=== PATIENT | female | born 1990 | race Two or more races ===

== ENCOUNTER 2019-12-05 09:22 | Outpatient (RCR) | payer OTHER, SELFPAY ==
[2019-11-20 10:20] VITALS: BP 114/70; PULSE 97
[2019-11-23 10:14] VITALS: BP 135/80; PULSE 97
[2019-11-26 10:07] VITALS: BP 120/72; PULSE 97
[2019-11-29 12:58] VITALS: BP 121/68; PULSE 104
[2019-12-02 10:27] VITALS: BP 115/71; PULSE 88
[2019-12-05 10:00] VITALS: BP 122/70; PULSE 84
== END 2020-01-27 08:53 | disposition home or self-care (01) ==
LOC: ANHOBOP 09:22
PROVIDERS: PCP Obstetrics & Gynecology; Visit Provider Obstetrics & Gynecology
DX: O24.419 Gestational diabetes mellitus in pregnancy, unspecified control (principal); Z3A.36 36 weeks gestation of pregnancy; Z3A.37 37 weeks gestation of pregnancy; Z3A.38 38 weeks gestation of pregnancy
CPT/HCPCS: 59025

== ENCOUNTER 2019-12-12 09:18 | Outpatient (CLI) | payer OTHER, SELFPAY ==
[2019-12-12 09:41] LABS: Basophils Percent Auto 0.2 % (0.2-1.2); Eosinophils Percent Auto 0.5 % (0-4.4); Hematocrit 33.4 % (37.0-47.0); Hemoglobin 10.6 g/dL (12.0-15.0); Immature Granulocyte Absolute 0.02 K/mm3 (0.00-0.031); Immature Granulocyte Percent A 0.2 % (0-0.5); Lymphocytes Absolute Auto 2.46 K/mm3 (0.9-3.2); Lymphocytes Percent Auto 30.6 % (18.3-44.2); Mean Corpuscular HGB Conc 31.7 g/dl (32-36); Mean Corpuscular Hemoglobin 25.1 pg (26-34); Mean Corpuscular Volume 79.1 fl (80-100); Mean Platelet Volume 12.7 fl (7.4-10.4); Monocytes Absolute Auto 0.5 K/mm3 (0.1-0.6); Monocytes Percent Auto 6.7 % (2.6-8.5); Neutrophils Percent Auto 61.8 % (45.5-73.1); Platelet Count Result 183 k/mm3 (150-375); Red Blood Count 4.22 M/mm3 (4.2-5.4); Red Cell Distribution Width 14.6 % (11.5-14.5)
[2019-12-13 07:05] LABS: Rapid Plasma Reagin Non-Reactive (NonReactive)
== END 2019-12-12 09:19 | disposition home or self-care (01) ==
PROVIDERS: PCP Obstetrics & Gynecology; Visit Provider Obstetrics & Gynecology
DX: Z01.818 Encounter for other preprocedural examination (principal)
CPT/HCPCS: 36415; 85025; 86592; 86850; 86900; 86901

== ENCOUNTER 2019-12-13 07:03 | Inpatient (IN) | payer OTHER, SELFPAY ==
[2019-12-13] VITALS (63 sets, daily range): BP systolic 93–124; BP diastolic 49–94; PULSE 55–96; RESP 14–20; TEMP 35.9–37.2; O2SAT 96–100; BMI 39.1
--- NOTE | 2019-12-13 07:38 | P.HP_ITS ---
H&P: HPI History of Present Illness Chief complaint: Repeat C Section Narrative: Jory Matthews is a 29 yo @ 39.5wks who presents for scheduled repeat c/s. She denies any issues. No contractions, leakage of fluid, vaginal bleeding. Good movements. BS 74 this AM. This is complicated by: previous h/o section and gestational diabetes (A2GDM) on glyburide. Review of Systems Constitutional: Constitutional: Denies body ache(s) and Denies chills Cardiovascular: Cardiovascular: Denies chest pain Respiratory: Respiratory: Denies dyspnea on exertion Gastrointestinal: Gastrointestinal: Denies abdominal pain Genitourinary: Genitourinary: Denies vaginal discharge Neurologic: Denies headache(s) Psychiatric: Psychiatric: Denies no additional psychiatric complaints Meds Vital Signs Vital Signs - 24 hr 12/13/19 07:29 Pulse Rate 93 Blood Pressure 124/76 Exam Const: General: comfortable and no acute distress Resp: Effort & Inspection: normal respiratory effort Auscultation: clear to auscultation bilaterally Cardio: Rate: regular rate Rhythm: regular rhythm GI: Other: Gravid : Other: FHT: 120's/ mod mao/ + accels/ no decels - cat 1 [place]: no contractions Membranes: intact Skin: General skin exam: no rashes or lesions noted Neuro: Speech: normal speech Psych: Mental Status: mental status grossly normal Assessment and Plan Additional Plan 29yo @ 39.5wks for scheduled repeat c/s - Pt has previous c/s in 2016 - Risks/benefits explained in detail. All questions answered. Consents signed. - T&S, CBC - Cefazolin 2g IV prior to c/s - Proceed with scheduled c/s
[2019-12-13 07:46] LABS: Glucose Point of Care 74 (65-105)
--- NOTE | 2019-12-13 08:05 | LDADM ---
This patient, Jory Matthews, was admitted to Labor/Delivery/Recovery 120 on 12/13/19 at 07:03. Plans for labor, pain management and were discussed with patient. Patient/family oriented to hospital policies and general routines including ID bracelet, bed and alarms, visiting hours, pain management, procedures, bathroom and other care routines, personal items, smoking policy, room service/diet and guest tray routines, security routines, and visiting hours. Patient/Family are encouraged to report perceived risks to care and to ask questions if they do not understand what they are told or what they should do. See OBIX for further documentation.
[2019-12-13] MEDS: LACTATED RINGERS 1,000 ML 999 ML IV CONT (08:22)
--- NOTE | 2019-12-13 08:28 | WPDANESEPPF ---
Anes - Initial Pre Proc Eval Procedure: Operation Date: 12/13/19 09:00 Proposed Procedures p Repeat Section - Erica Petersen MD Date/Time: 12/13/19 08:28 Surgeon: Erica Petersen MD Pre Op Diagnosis: Repeat C Section Patient Data Age: 29 Gender: F Height: 5 ft 6 in Weight: 110 kg Last Vital Signs Temp 36.3 C L 12/13/19 08:18 Pulse 93 12/13/19 07:29 BP 124/76 12/13/19 07:29 Allergies Allergy/AdvReac Type Severity Reaction Status Date / Time No Known Allergies Allergy Verified 12/13/19 08:19 Home Medications Medication Instructions Recorded Confirmed Type doxylamine-pyridoxine (vit B6) 1 tablet PO EVERY OTHER DAY 12/13/19 12/13/19 History [Diclegis] glyburide 1 mg DAILY 12/13/19 12/13/19 History Laboratory Tests 12/13/19 12/13/19 07:42 07:46 POC Capillary Glucose 74 mg/dl mg/dl (65-105) HIV 1&2 Ab/P24 Ag 4thGn Pending Patient hx anesthesia problems: none Family hx anesthesia problems: none PMFSH Past Medical History Medical History (Updated 12/13/19 @ 08:29 by Nicola Patton MD) Gestational diabetes mellitus Obesity Surgical History Surgical History (Updated 12/13/19 @ 08:29 by Nicola Patton MD) Previous delivery, delivered Family History Family History Father Diabetes mellitus Social History Social History Smoking status: Former smoker Tobacco type: cigarettes Gender identity (if verbalized by the patient): Female Anes - Eval Final PreProcedure Day of Procedure 12/13/19 08:28 Patient weight: obese Heart: regular rate and rhythm Lungs: clear to auscultation Airway: Mallampati scale class II Neurological: alert and oriented Last oral intake: >/= 8 hours ASA classification: II Emergent: no Anesthetic plan: proceed Anesthesia type and monitoring: regional spinal and standard monitoring Informed Consent: The patient's anesthetic plan and its attendant risks and benefits were discussed with the patient/family/POA. Questions were solicited and answers provided to the satisfaction of the patient/family/POA.
[2019-12-13 08:46] LABS: HIV 1/2 Ab P24 Ag Result Negative (Negative)
--- NOTE | 2019-12-13 10:41 | PM.OBPRVD ---
OB - Delivery Note Procedure Delivery date: 12/13/19 Procedure: Procedures Operation Date: 12/13/19 09:00 Actual Procedures Side Surgeon p Section Erica Petersen MD Jory Matthews is a 29-year-old 011 at 39 weeks and 5 days who presented for scheduled repeat section. After all risks and benefits were explained in detail the appropriate consents were signed. She was then taken to the operating room where epidural anesthesia was placed without difficulty. She received 2 g Ancef and a time-out was performed. Once anesthesia was found to be adequate she was then prepped and draped in the usual sterile fashion in the dorsal position. A Pfannenstiel skin incision was made. The incision was then carried down through the subcutaneous tissue to the fascia using Bovie cautery. The fascia was nicked on either side of the midline and extended laterally using curved Bruno scissors. The superior portion of the rectus fascia was grasped with Babita clamps and the underlying rectus muscles were dissected away from the rectus fascia. The same maneuver was performed inferiorly. The rectus muscles were then in the midline and the peritoneum was entered bluntly without complications. Once adequate exposure was obtained, a self retaining retractor was placed within the abdomen. A bladder flap was then made. A low transverse incision was made on the uterus. The amniotic sac was identified and ruptured with clear fluid noted. The head was then brought to the hysterotomy and delivered without complications, no nuchal cord was palpated. The shoulders and body were delivered without complications. The mouth and nose were bulb suctioned and spontaneous cry was noted. The umbilical cord was clamped and cut and the fetus was handed off to the waiting pediatric nurse. A segment of cord was collected for cord gases. The remaining cord blood was collected for typing. With gentle traction on the umbilical cord and pitocin running, the placenta delivered without complications. The uterus was then cleared of all clots and debris using a clean lap. The hysterotomy was repaired in a running fashion using 0 Vicryl. A 2nd layer imbricating closure was made using 0 Vicryl, and the hysterotomy was noted to be hemostatic. The bilateral adnexa were examined and found to be within normal limits and the fundus was firm. The pelvis was then cleared of all clots and debris using a clean lap. The hysterotomy incision was once again reinspected and found to be hemostatic. The self retaining retractor was removed from the abdomen. The peritoneum, rectus muscles, and rectus fascia were all examined and made hemostatic with Bovie cautery. A single U stitch using 0 Vicryl was used to reapproximate the rectus muscles. The rectus fascia was then reapproximated using 2 separate 0 Vicryl sutures in a running fashion from each corner. The subcutaneous tissue was then irrigated and made hemostatic with Bovie cautery. The subcutaneous tissue was reapproximated using 2 0 Vicryl in a running fashion. The skin was then reapproximated using 3 0 Monocryl in a running subcuticular fashion. The fundus was firm. The patient tolerated the procedure well. Sponge, lap, needle, and instrument counts were correct at the end of the procedure. The patient was cleaned and then transported to recovery in a stable condition. events: Gestational Diabetes (A2GDM on glyburide) Induction method: none Route of delivery: Laceration description: None Delivery repair: vicryl Specimen: Yes Estimated blood loss (mL): 215 Anesthesia type: Epidural Disposition: PACU Baby Date of : 12/13/19 Time of : 09:08 Weeks of gestation at delivery: 39 gender: Female Weight (pounds): 8 Weight (ounces): 2 presentation: vertex Placenta delivery description: Expressed cord vessel description: 3 Vessels score one min
[2019-12-13] MEDS: OXYTOCIN 30 UNITS/NS 500 ML 30 UNITS/500 ML BAG 125 UNITS IV CONT (11:00)
[2019-12-13] MEDS: LORATADINE 10 MG TABLET PO (14:01)
[2019-12-13] MEDS: ONDANSETRON INJ 4 MG/2 ML VIAL 8 MG IV PUSH (14:02)
[2019-12-13] MEDS: KETOROLAC 30 MG/ML VIAL (*BKC) IV PUSH ×2 (14:09→22:24)
[2019-12-13] MEDS: DEXTROSE 5%/0.45% SOD CHL 1,000 ML 125 ML IV CONT (15:10)
[2019-12-13] MEDS: DOCUSATE SODIUM 100 MG CAPSULE PO (16:54)
--- NOTE | 2019-12-13 19:36 | PC.NURSE ---
1233 Pt transferred to room 284 per stretcher from labor and delivery after repeat delivery of viable female at [address] Peters[address]. Mother is a and is choosing to breast feed . /FOB present. Couple oriented to room, staffing and procedures; admission folder reviewed with them. Pt's VSS and assessment WNL.
[2019-12-14 04:45] VITALS: BP 104/62; PULSE 89; RESP 16; TEMP 36.6; O2SAT 100
[2019-12-14] MEDS: IBUPROFEN 600 MG TABLET PO ×3 (04:45→19:51)
[2019-12-14] MEDS: SIMETHICONE 80 MG TAB.CHEW PO (04:45)
[2019-12-14 06:26] LABS: Basophils Percent Auto 0.1 % (0.2-1.2); Eosinophils Percent Auto 0.4 % (0-4.4); Hematocrit 27.8 % (37.0-47.0); Hemoglobin 8.5 g/dL (12.0-15.0); Immature Granulocyte Absolute 0.02 K/mm3 (0.00-0.031); Immature Granulocyte Percent A 0.2 % (0-0.5); Lymphocytes Absolute Auto 1.28 K/mm3 (0.9-3.2); Lymphocytes Percent Auto 15.3 % (18.3-44.2); Mean Corpuscular HGB Conc 30.6 g/dl (32-36); Mean Corpuscular Hemoglobin 24.6 pg (26-34); Mean Corpuscular Volume 80.6 fl (80-100); Mean Platelet Volume 12.6 fl (7.4-10.4); Monocytes Absolute Auto 0.7 K/mm3 (0.1-0.6); Monocytes Percent Auto 8.8 % (2.6-8.5); Neutrophils Absolute Auto 6.3 K/mm3 (1.3-6.7); Neutrophils Percent Auto 75.2 % (45.5-73.1); Platelet Count Result 152 k/mm3 (150-375); Red Blood Count 3.45 M/mm3 (4.2-5.4); Red Cell Distribution Width 14.6 % (11.5-14.5); White Blood Count 8.4 K/mm3 (4.5-10.0)
[2019-12-14 07:30] VITALS: BP 110/73; PULSE 88; RESP 18; TEMP 36.6
[2019-12-14] MEDS: MULTIVIT/MIN/PREN/FOL AC/IRON TABLET 1 TAB PO (07:38)
[2019-12-14] MEDS: POLYSACCHARIDE IRON COMPLEX 150 MG CAPSULE PO ×2 (07:38→17:45)
[2019-12-14] MEDS: DOCUSATE SODIUM 100 MG CAPSULE PO ×2 (07:38→17:45)
--- NOTE | 2019-12-14 09:22 | PM.OBPNVD ---
OB - PN: Subj Subjective Date/time seen: 12/14/19 09:22 Patient comments: no complaints, pain well controlled, incisional pain and tolerating diet [place] baby status: doing well [place] feeding status: exclusively breast feeding OB - PN: Obj Data Labs CBC & Chem 7: 12/14/19 05:01 Labs: Laboratory Results - last 24 hr 12/14/19 05:01 WBC 8.4 RBC 3.45 L Hgb 8.5 L Hct 27.8 L MCV 80.6 MCH 24.6 L MCHC 30.6 L RDW 14.6 H Plt Count 152 MPV 12.6 H Immature Gran % (Auto) 0.2 Neut % (Auto) 75.2 H Lymph % (Auto) 15.3 L [place] % (Auto) 8.8 H Eos % (Auto) 0.4 Baso % (Auto) 0.1 L Lymph # (Auto) 1.28 [place] # (Auto) 0.7 H Eos # (Auto) 0.0 Baso # (Auto) 0.0 Abs Immat Gran (auto) 0.02 Absolute Neuts (auto) 6.3 Absolute Nucleated RBC 0.0 Nucleated RBC % 0.0 OB - PN A/P Assessment and Plan (1) delivery delivered: Code(s): O82 - Encounter for delivery without indication Status: Acute Assessment and Plan: Routine postop/ care Pain management Ambulate (2) Postoperative anemia due to acute blood loss: Code(s): D62 - Acute posthemorrhagic anemia Status: Acute Assessment and Plan: Iron supplements Time Spent With Patient Time: Total time spent is greater than 50% in coordination of care (as documented) at patient's floor/unit and/or counseling patient: Review of Systems Constitutional: Constitutional: Reports no additional constitutional complaints Cardiovascular: Cardiovascular: Reports no additional cardiovascular complaints Respiratory: Respiratory: Reports no additional respiratory complaints Gastrointestinal: Gastrointestinal: Reports no additional gastrointestinal complaints Genitourinary: Genitourinary: Reports no additional female genitourinary complaints Exam Const: General: comfortable, no acute distress, alert and awake Orientation/consciousness: patient oriented x3 Resp: Effort & Inspection: normal respiratory effort Cardio: Rate: regular rate GI: Other: soft, nontender, nondistended Psych: Appearance: grossly normal Mental Status: mental status grossly normal Affect: normal affect Attitude: cooperative Judgement: Good judgement present (Psych)
--- NOTE | 2019-12-14 10:34 | WPDANLDPN2 ---
Anes-Prog Note L&D Date/Time: 12/14/19 10:34 Comfortable throughout: section Neuraxial method: spinal Epidural/Spinal procedure site: clean & non-tender Neuro status: Neuro function grossly intact. Cardiovascular status: normal Respiratory status: normal Airway patency: baseline Mental status: baseline Post-Op hydration status: normal Vital Signs: Last Vital Signs Temp 36.6 C 12/14/19 07:30 Pulse 88 12/14/19 07:30 Resp 18 12/14/19 07:30 BP 110/73 12/14/19 07:30 Pulse Ox 100 12/14/19 04:45 I/O: Intake & Output 12/13/19 12/14/19 12/14/19 23:59 07:59 15:59 Intake Total 3160 500 Output Total 900 1050 Balance 2260 -550 Post-procedural complaints: none Patient feedback: Patient satisfied with anesthetic care.
--- NOTE | 2019-12-14 10:34 | WPDANLDNPN2 ---
Anes-Prog Note L&D-Neuraxial Date/Time: 12/14/19 10:34 Neuraxial medications: intrathecal PF morphine Opiod-related complaints: none Patient feedback: Patient satisfied with post-operative pain management.
[2019-12-14 19:50] VITALS: BP 122/65; PULSE 91; RESP 16; TEMP 36.8; O2SAT 100
[2019-12-15] MEDS: IBUPROFEN 600 MG TABLET PO ×4 (02:08→23:42)
[2019-12-15 07:50] VITALS: BP 133/71; PULSE 97; RESP 18; TEMP 36.4
[2019-12-15] MEDS: POLYSACCHARIDE IRON COMPLEX 150 MG CAPSULE PO ×2 (07:51→16:24)
[2019-12-15] MEDS: DOCUSATE SODIUM 100 MG CAPSULE PO ×2 (07:51→16:23)
[2019-12-15] MEDS: MULTIVIT/MIN/PREN/FOL AC/IRON TABLET 1 TAB PO (07:51)
--- NOTE | 2019-12-15 09:52 | PM.OBPNVD ---
OB - PN: Subj Subjective Date/time seen: 12/15/19 09:52 Interval history: 29yos/p rLTCS on 12/12. Doing well. Soreness and pain with movement and ambulation. Otherwise doing well. Passing flatus. Tolerating diet. Patient comments: no complaints, incisional pain and tolerating diet [place] baby status: doing well feeding status: exclusively breast feeding OB - PN: Obj Data Labs CBC & Chem 7: 12/14/19 05:01 OB - PN A/P Assessment and Plan (1) delivery delivered: Code(s): O82 - Encounter for delivery without indication Status: Acute Assessment and Plan: Routine postop/ care Pain management Ambulate DC home tomorrow, POD#3 (2) Postoperative anemia due to acute blood loss: Code(s): D62 - Acute posthemorrhagic anemia Status: Acute Assessment and Plan: Iron supplements Time Spent With Patient Time: Total time spent is greater than 50% in coordination of care (as documented) at patient's floor/unit and/or counseling patient: Review of Systems Constitutional: Constitutional: Reports no additional constitutional complaints, Denies body ache(s), Denies chills and Denies headache(s) ENT: Denies headache(s) Cardiovascular: Cardiovascular: Reports no additional cardiovascular complaints, Denies chest pain and Denies dyspnea on exertion Respiratory: Respiratory: Reports no additional respiratory complaints and Denies dyspnea on exertion Gastrointestinal: Gastrointestinal: Reports no additional gastrointestinal complaints and Denies abdominal pain Genitourinary: Genitourinary: Reports no additional female genitourinary complaints and Denies vaginal discharge Neurologic: Denies headache(s) Psychiatric: Psychiatric: Denies no additional psychiatric complaints Exam Const: General: comfortable, no acute distress, alert and awake Orientation/consciousness: patient oriented x3 Resp: Effort & Inspection: normal respiratory effort Auscultation: clear to auscultation bilaterally Cardio: Rate: regular rate Rhythm: regular rhythm GI: Other: soft, nontender, nondistended Skin: General skin exam: no rashes or lesions noted Neuro: General: patient oriented x3 Speech: normal speech Psych: Mental Status: mental status grossly normal Affect: normal affect Attitude: cooperative Judgement: Good judgement present (Psych)
--- NOTE | 2019-12-15 09:54 | P.DS_ITS ---
DS: Diagnosis Admitting Diagnosis Admitting Diagnosis: Encounter for delivery without indication Discharge Diagnosis (1) Postoperative anemia due to acute blood loss: Code(s): D62 - Acute posthemorrhagic anemia Status: Acute Assessment and Plan: Iron supplements (2) S/P repeat low transverse : Code(s): Z98.891 - History of uterine scar from previous surgery Status: Acute Assessment and Plan: Routine postop/ care Pain management Ambulate DC home 12/16/2019 DS: Summary Time Spent with Patient Time attestation: Total time spent providing and/or coordinating discharge services: Exam Const: General: comfortable, no acute distress, alert and awake Orientation/consciousness: patient oriented x3 Resp: Effort & Inspection: normal respiratory effort Auscultation: clear to auscultation bilaterally Cardio: Rate: regular rate Rhythm: regular rhythm GI: Other: soft, nontender, nondistended Skin: General skin exam: no rashes or lesions noted Neuro: General: patient oriented x3 Speech: normal speech Psych: Appearance: grossly normal Mental Status: mental status grossly no rmal Affect: normal affect Attitude: cooperative Judgement: Good judgement present (Psych) DS: Data Data Completed and Pending Pending studies at discharge: Pending at discharge 12/13/19 10:11 Surgical [PTH] Routine Discharge Plan Discharge Attending physician on discharge: Erica Petersen Discharging Clinician: Jose Avery Patient Disposition: Home, Self-Care Activity: as tolerated Diet: regular Wound Care Instructions: keep dressing dry and other - see discharge instructions Discharge Instructions: Follow up in office in 1 week after surgery for dressing removal Patient Instructions: Antibiotic Form Stand Alone Forms: General Discharge Information Follow-up/Referrals: Erica Petersen MD [Physician] - Discharge Medications: New hydrocodone-acetaminophen 5-325 mg Tablet 1 tab PO Q6H PRN (Reason: Moderate Pain (4-6)) Qty: 20 RF: 0 polysaccharide iron complex 150 mg iron Capsule 150 mg PO BIDWM Qty: 90 RF: 0 docusate sodium 100 mg Capsule 100 mg PO BID Qty: 60 RF: 0 ibuprofen 600 mg Tablet 600 mg PO Q6H PRN (Reason: Cramping) Qty: 90 RF: 0 Continued glyburide 2.5 mg tablet 1 mg DAILY RF: 0 Discontinued doxylamine-pyridoxine (vit B6) [Diclegis] 10-10 mg tablet,delayed release (DR/EC) 1 tablet PO EVERY OTHER DAY RF: 0 Date of admission: 12/13/19 07:03 Primary Care Provider: UNKNOWN,DOCTOR Admitting Provider: Erica Petersen Attending physician on admission: Erica Petersen
[2019-12-15 19:42] VITALS: BP 123/77; PULSE 90; RESP 16; TEMP 36.1; O2SAT 100
[2019-12-16 07:40] VITALS: BP 125/78; PULSE 85; RESP 18; TEMP 36.7; O2SAT 100
--- NOTE | 2019-12-16 09:00 | PC.NURSE ---
Consult with pt., mother states she had some difficulties with latching. Mother began to pump and is now pumping and bottle feeding. Offered mother assist with latching, mother declines assist. Mother states she is happy with pumping and bottle feeding, she may attempt later. Mother pumps every 3 hours and is now pumping 30+mls each pumping session. Mother breastfed first child for several months without issues. Mother is feeding as required and waking to feed if needed. Infant is currently meeting outcomes for output, jaundice and feeding frequencies. Weight is close to 10%, mother will give at least 30mls each feeding. Mother states she feels confident to continue current feeding plan at home. Reviewed transition to breast milk, signs of adequate intake, and engorgement/relief. Instructed to call ICP if intake/output less than required. Reviewed regular medications mother is taking. Information provided per Elizabeth. Reviewed community resources on the [employer] website and in the Mom/Baby guide. Information on outpatient services provided. Mother has no further questions at this time.
[2019-12-16] MEDS: POLYSACCHARIDE IRON COMPLEX 150 MG CAPSULE PO (10:10)
[2019-12-16] MEDS: DOCUSATE SODIUM 100 MG CAPSULE PO (10:10)
[2019-12-16] MEDS: IBUPROFEN 600 MG TABLET PO (10:13)
[2019-12-16] MEDS: MULTIVIT/MIN/PREN/FOL AC/IRON TABLET 1 TAB PO (10:13)
--- NOTE | 2019-12-16 11:24 | PC.NURSE ---
Patient viewed the discharge video Mother & Baby Care, The First Two Weeks . Patient was given the opportunity and encouraged to ask questions. Patient verbalized understanding of information shared and has been given the mother/baby guide for home reference.
[2019-12-17 13:18] VITALS: BP 136/89; PULSE 96; RESP 20; TEMP 36.8
== END 2019-12-16 13:14 | disposition home or self-care (01) | DRG 787 ==
LOC: ANHOB2 12-15 09:58 → ANHLDR 12-18 07:20 → ANHOB2 12-18 07:20
PROVIDERS: Admitting Provider Obstetrics & Gynecology; Visit Provider Obstetrics & Gynecology
PROC: 10D00Z1 Extraction of Products of Conception, Low, Open Approach (ICD-10-PCS; CPT 59514; principal; 2019-12-13 09:00)
DX: O34.211 Maternal care for low transverse scar from previous cesarean delivery (principal); D62 Acute posthemorrhagic anemia; Z3A.39 39 weeks gestation of pregnancy; Z37.0 Single live birth; O24.425 Gestational diabetes mellitus in childbirth, controlled by oral hypoglycemic drugs
CPT/HCPCS: 36415; 85025; 86592; 86703; 86850; 86900; 86901; 88307; A9270; G0432; J0131; J1885; J2274; J2370; J2405; J2590; J7120

== ENCOUNTER 2020-04-11 11:17 | Outpatient (CLI) | payer OTHER, SELFPAY | END 2020-04-11 11:18 | disposition home or self-care (01) | PROVIDERS: Visit Provider Obstetrics & Gynecology | DX: N92.6 Irregular menstruation, unspecified (principal) | CPT/HCPCS: 36415; 84702 ==

== ENCOUNTER 2020-04-13 11:21 | Emergency (ER) | payer OTHER, SELFPAY ==
--- NOTE | ~2020-04-13 | US_ITS ---
EXAMINATION: US OB <=14 wk fetus w TV DATE: 04/13/2020 15:13 INDICATION: Vaginal bleeding during first trimester TECHNIQUE: Real-time pelvic transabdominal and transvaginal ultrasound was performed. COMPARISON: None. FINDINGS: The uterus measures 10.0 x 4.2 x 6.4 cm. The endometrial thickness measures 13 mm. No intr auterine gestational sac is identified. The left ovary is not visualized however no left adnexal abno rmality is seen. The right ovary measures 3.3 x 1.9 x 2.9 cm. There is a large amount of complex free fluid in the pelvis and right adnexa. IMPRESSION: 1. No intrauterine identified. Findings could be related to early gestation. However, there is a large volume of complex pelvic fluid, possibly reflecting hemorrhage, raising concern for ruptu red ectopic . MEDICAL TECHNOLOGIST CHEMISTRY evaluation is recommended. These findings and recommendations were disc ussed with Dr. Teodoro MD in the Emergency Department at 1530 hours on 04/13/2020. Reviewed, dictated and finalized at location A. IMPRESSION: 1. No intrauterine identified. Findings could be related to early ges tation. However, there is a large volume of complex pelvic fluid, possibly refl ecting hemorrhage, raising concern for ruptured ectopic . MEDICAL TECHNOLOGIST CHEMISTRY evalu ation is recommended. These findings and recommendations were discussed with Dr Ale Valerio MD in the Emergency Department at 1530 hours on 04/13/2020.
[2020-04-13 11:45] VITALS: BP 118/95; PULSE 95; RESP 20; TEMP 36; O2SAT 99
[2020-04-13 12:00] LABS: Basophils Percent Auto 0.3 % (0.2-1.2); Eosinophils Percent Auto 0.4 % (0-4.4); Hematocrit 37.7 % (37.0-47.0); Immature Granulocyte Absolute 0.02 K/mm3 (0.00-0.031); Immature Granulocyte Percent A 0.3 % (0-0.5); Lymphocytes Absolute Auto 1.78 K/mm3 (0.9-3.2); Lymphocytes Percent Auto 24.3 % (18.3-44.2); Mean Corpuscular HGB Conc 31.8 g/dl (32-36); Mean Corpuscular Volume 81.6 fl (80-100); Mean Platelet Volume 11.5 fl (7.4-10.4); Monocytes Absolute Auto 0.4 K/mm3 (0.1-0.6); Monocytes Percent Auto 4.9 % (2.6-8.5); Neutrophils Absolute Auto 5.1 K/mm3 (1.3-6.7); Neutrophils Percent Auto 69.8 % (45.5-73.1); Platelet Count Result 275 k/mm3 (150-375); Red Blood Count 4.62 M/mm3 (4.2-5.4); Red Cell Distribution Width 15.6 % (11.5-14.5); White Blood Count 7.3 K/mm3 (4.5-10.0)
--- NOTE | 2020-04-13 14:37 | PC.NURSE ---
Pt gone when called to go to exam room.
[2020-04-13 16:47] VITALS: BP 115/52; PULSE 102; RESP 20; O2SAT 100
--- NOTE | 2020-04-13 16:58 | ED.GENADULT ---
HPI - General Adult General Chief complaint: Vaginal Bleeding Stated complaint: vag bleeding a couple weeks Time Seen by Provider: 04/13/20 16:43 History of Present Illness HPI narrative: Patient is a 29 y/o female complaining of heavy vaginal bleeding for about 5 days. She denies passing tissue or clots. She notices dark blood. There is no alleviating or exacerbating factor. She states that her LMP was 03/17/20. She took home test 3 days ago and it was positive. She also has some lower abdominal cramping. She was instructed by her garnett fixer to come to ED for evaluation. Related Data Home Medications Medication Instructions Recorded Confirmed glyburide 1 mg DAILY 12/13/19 12/13/19 Allergies Allergy/AdvReac Type Severity Reaction Status Date / Time No Known Allergies Allergy Verified 12/13/19 08:19 Review of Systems Constitutional: Constitutional: Denies chills, Denies fever(s), Denies headache(s) and Denies weakness Eyes: Eyes: Denies blurry vision ENT: Denies headache(s) and Denies neck pain Cardiovascular: Cardiovascular: Denies chest pain and Denies dyspnea Respiratory: Respiratory: Denies cough and Denies dyspnea Gastrointestinal: Gastrointestinal: Denies abdominal pain, Denies diarrhea, Denies nausea and Denies vomiting Genitourinary: Genitourinary: Reports abnormal vaginal bleeding, Denies hematuria, Denies dysuria and Reports pelvic pain Musculoskeletal: Musculoskeletal: Denies back pain and Denies neck pain Neurologic: Denies headache(s) and Denies weakness [facility] Past Medical History Medical History (Updated 04/13/20 @ 18:50 by Barbi Valerio MD) Gestational diabetes mellitus Obesity Surgical History Surgical History (Updated 12/15/19 @ 09:55 by Jose Avery DO) Previous delivery, delivered Social History Social History Smoking status: Former smoker Tobacco type: cigarettes Gender identity (if verbalized by the patient): Female Exam Const: General: no acute distress and well developed Orientation/consciousness: oriented to person, oriented to place, oriented to time and patient oriented x3 HENMT: Head: normocephalic Ears: external ears normal General nose exam: Normal external nose present Eyes: General: appearance normal, both eyes and all related structures Conjunctivae: conjunctivae normal Neck: Neck: normal visual inspection and full ROM Chest: Chest palpation & inspection: normal inspection of the chest and no tenderness Resp: Effort & Inspection: normal respiratory effort Auscultation: clear to auscultation bilaterally Cardio: Rate: regular rate Rhythm: regular rhythm GI: GI Palp: No abdominal tenderness and Yes Soft to palpation Skin: General skin exam: normal color and turgor normal Neuro: General: oriented to person, oriented to place, oriented to time and patient oriented x3 Cognition (Neuro): normal cognition Extrem: General: normal to inspection, full ROM and no pedal edema Psych: Appearance: grossly normal Mental Status: mental status grossly normal Affect: normal affect Course Reevaluation(s) Reevaluation #1: Informed patient about labs and ultrasound. Informed patient that miscarriage, early and ectopic are all possibilities and she needs follow up with her garnett fixer for further evaluation. Date: 04/13/20 Time: 18:30 Consultations Consultation #1: Discussed with Dr. Richards ([employer]), who recommends discharge and have patient call his office tomorrow for follow up. He will arrange for outpatient repeat labs and ultrasound. Date: 04/13/20 Time: 17:48 Vital Signs Vital signs: Vital Signs Temperature 36.0 C L 04/13/20 11:45 Pulse Rate 95 04/13/20 11:45 Respiratory Rate 20 04/13/20 11:45 Blood Pressure 118/95 H 04/13/20 11:45 Pulse Oximetry 99 04/13/20 11:45 Temperature 36.0 C L 04/13/20 11:45 Pulse Rate 90 04/13/20 18:56
[2020-04-13 18:34] LABS: Hematocrit 35.6 % (37.0-47.0); Hemoglobin 11.4 g/dL (12.0-15.0)
[2020-04-13 18:40] VITALS: BP 116/77; PULSE 94
[2020-04-13 18:42] VITALS: BP 113/78; BP 128/80; PULSE 104; PULSE 116
[2020-04-13 18:56] VITALS: BP 129/75; PULSE 90; RESP 20; O2SAT 98
== END 2020-04-13 18:58 | disposition home or self-care (01) ==
PROVIDERS: General Practice; Emergency Provider Emergency Medicine
DX: O20.9 Hemorrhage in early pregnancy, unspecified (principal); Z3A.00 Weeks of gestation of pregnancy not specified; O99.211 Obesity complicating pregnancy, first trimester; E66.9 Obesity, unspecified
CPT/HCPCS: 36415; 76801; 76817; 84702; 85014; 85018; 85025; 85461; 99284

== ENCOUNTER 2020-04-15 13:01 | Outpatient (CLI) | payer OTHER, SELFPAY ==
--- NOTE | ~2020-04-15 | US_ITS ---
EXAMINATION: US OB <=14 wk fetus w TV DATE: 04/15/2020 15:41 INDICATION: Threatened miscarriage, threatened , decreasing beta hCG TECHNIQUE: Real-time pelvic transabdominal and transvaginal ultrasound was performed. COMPARISON: 04/13/2020 FINDINGS: The uterus measures 6.1 x 5.0 x 6.7 cm. Nabothian cysts are noted in the cervix. No intraut erine gestational sac is identified. The right ovary measures 3.1 x 1.5 x 1.5 cm. The left ovary rajeev ures 1.5 x 2.0 x 1.6 cm. There is normal vascular flow in the ovaries. There is a large volume of per sistent fluid in the right adnexa. The fluid appears less complex than on the comparison examination but etiology remains indeterminate. IMPRESSION: 1. No intrauterine gestational sac identified. 2. Persistent large volume of fluid in the right adnexa of unclear etiology with a less complex appea jayda than on recent ultrasound. Recommend continued clinical follow-up as ectopic remains a consideration. Reviewed, dictated and finalized at location A. IMPRESSION: 1. No intrauterine gestational sac identified. 2. Persistent large volume of fluid in the right adnexa of unclear etiology wit h a less complex appearance than on recent ultrasound. Recommend continued clin ical follow-up as ectopic remains a consideration.
== END 2020-04-15 13:02 | disposition home or self-care (01) ==
PROVIDERS: Visit Provider Obstetrics & Gynecology
DX: O20.0 Threatened abortion (principal)
CPT/HCPCS: 36415; 76801; 76817; 84702

== ENCOUNTER 2020-04-17 02:36 | Day surgery (SDC) | payer OTHER, SELFPAY ==
[2020-04-16 11:44] VITALS: BMI 38.7
[2020-04-17] VITALS (13 sets, daily range): BP systolic 109–168; BP diastolic 70–99; PULSE 64–100; RESP 12–20; TEMP 35.5–37.3; O2SAT 94–100
--- NOTE | 2020-04-17 07:10 | P.HP_ITS ---
H&P: HPI History of Present Illness Chief complaint: Missed Ab/ Fluid In Abdomen Narrative: Jory Matthews is a 29 year old female 2 para 1001. Presents with complaints of vaginal bleeding over the past week and has had evaluation emergency room an ongoing which reveals plateau in beta HCG levels an d also question of mass in the posterior cul-de-sac. She has had no significant symptoms other than generalized cramping consistent with miscarriage. Presents today for curetting of the endometrial cavity as well as laparoscopic evaluation and evacuation of cul-de-sac mass. Clinical situation and imaging studies concerning for ectopic and this will be obviously evaluated as well. Review of Systems Review of Systems: All systems reviewed & are unremarkable except as noted in HPI and below PMFSH Past Medical History Medical History Gestational diabetes mellitus Obesity Surgical History Surgical History Previous delivery, delivered Family History Family History Father Diabetes mellitus Social History Social History Smoking packs per day: 0.75 Smoking cigarettes per day: 15.0 Years smoked: 6 Smoking pack-years: 4.50 Smoking status: Former smoker Tobacco type: cigarettes Additional smoking assessment comments: QUIT 5 YEARS AGO Gender identity (if verbalized by the patient): Female Spiritual care concerns: No Meds Home Medications and Allergies Home Medications Medication Instructions Recorded Confirmed Type ibuprofen 600 mg PO Q6H PRN #90 tablet 12/15/19 04/16/20 Rx acetaminophen [Tylenol] 650 mg PO DIRECTED PRN 04/16/20 04/16/20 History Allergies Allergy/AdvReac Type Severity Reaction Status Date / Time No Known Allergies Allergy Verified 04/16/20 11:44 Exam Const: General: no acute distress Resp: Auscultation: clear to auscultation bilaterally Cardio: Rate: regular rate Rhythm: regular rhythm GI: GI Palp: Yes Soft to palpation Auscultation: normal bowel sounds : External Female Exam: normal external appearance Speculum Exam - Vagina: vaginal bleeding Other: Bimanual exam is tender though no specific masses are noted. Assessment and Plan Assessment and plan (1) Abnormal in first trimester: Code(s): O26.91 - related conditions, unspecified, first trimester Status: Acute (2) Pelvic mass: Code(s): R19.00 - Intra-abdominal and pelvic swelling, mass and lump, unspecified site Status: Acute Additional Plan will proceed with suction curettage to evacuate the endometrial cavity to be followed by laparoscopic evaluation of removal of cul-de-sac mass and any other intraoperative procedures required for condition found.
[2020-04-17] MEDS: ACETAMINOPHEN 500 MG TABLET 1000 MG PO (11:10)
--- NOTE | 2020-04-17 11:14 | WPDANESEPPF ---
Anes - Initial Pre Proc Eval Procedure: Operation Date: 04/17/20 13:00 Proposed Procedures p Suction Dilation And Curettage - Dwight Richards MD s Diagnostic Laparoscopy - Dwight Richards MD Date/Time: 04/17/20 11:14 Surgeon: Dwight Richards MD Pre Op Diagnosis: Missed Ab/ Fluid In Abdomen Patient Data Age: 29 Gender: F Height: 1.68 m Weight: 108.86 kg Allergies Allergy/AdvReac Type Severity Reaction Status Date / Time No Known Allergies Allergy Verified 04/16/20 11:44 Home Medications Medication Instructions Recorded Confirmed Type ibuprofen 600 mg PO Q6H PRN #90 tablet 12/15/19 04/16/20 Rx acetaminophen [Tylenol] 650 mg PO DIRECTED PRN 04/16/20 04/16/20 History Patient hx anesthesia problems: none Family hx anesthesia problems: none PMFSH Past Medical History Medical History Gestational diabetes mellitus Obesity Surgical History Surgical History Previous delivery, delivered Family History Family History Father Diabetes mellitus Social History Social History Smoking packs per day: 0.75 Smoking cigarettes per day: 15.0 Years smoked: 6 Smoking pack-years: 4.50 Smoking status: Former smoker Tobacco type: cigarettes Additional smoking assessment comments: QUIT 5 YEARS AGO Gender identity (if verbalized by the patient): Female Spiritual care concerns: No Anes - Eval Final PreProcedure Day of Procedure 04/17/20 11:14 Patient weight: obese Heart: regular rate and rhythm Lungs: clear to auscultation and normal air movement Airway: Mallampati scale class II Neurological: alert and oriented Last oral intake: >/= 8 hours ASA classification: II Emergent: no Anesthetic plan: proceed Anesthesia type and monitoring: general ETT Informed Consent: The patient's anesthetic plan and its attendant risks and benefits were discussed with the patient/family/POA. Questions were solicited and answers provided to the satisfaction of the patient/family/POA.
[2020-04-17] MEDS: LACTATED RINGERS 1,000 ML 30 ML IV CONT ×3 (12:35→15:50)
--- NOTE | 2020-04-17 14:20 | PM.OP ---
Procedure Note - Brief Procedure Note - Brief Date of procedure: 04/17/20 Pre-op diagnosis: Missed Ab/ Fluid In Abdomen Post-op diagnosis: other ( Right tubal ectopic ) Procedure performed: 1. Suction uterine curettage 2. Laparoscopic adhesiolysis 3. Laparoscopic right salpingectomy Description of procedure: patient was prepped and draped in usual manner for this procedure. Periumbilical incision was made in the laparoscoped was placed under direct visualization with immediate visualization of the pelvic and abdominal contents. There were midline adhesions of the omentum to the anterior abdominal wall and these were left in place at this time. Thorough evaluation of the pelvis did reveal [id number] hemoperitoneum with the uterus left tube and ovary without abnormality. Right ovary without abnormality right distal 2/3 of the right tube with ectopic and did appear to be extruding from the fimbriated edge as well. At this point the bilateral lower pelvic trocars were placed under direct visualization and irrigation was undertaken and the 200cc hemoperitoneum was removed. Using Harmonic scalpel the mesial salpinx on the right tube were cauterized and cut and the tube was readily removed through the right lower quadrant port. Irrigation was undertaken and there was no bleeding. Juventino was placed empirically. Gas was allowed to escape and approximation of the skin incisions with 4 0 Monocryl was undertaken. Attention was then placed the uterus which was readily removed of scant amount of tissue using an 8mm suction curette. At this point seizure was considered terminated patient was sent to recovery room in stable condition. Anesthesia: GETA Surgeon: Dwight Richards MD Estimated blood loss (mL): 20 Drains: No Packing: No Pathology: yes Complications: No immediate complications Condition: stable Disposition: PACU Findings: Endometrial cavity with scant tissue. 200cc hemoperitoneum. Right tubal ectopic .
== END 2020-04-17 17:45 | disposition home or self-care (01) ==
PROVIDERS: Visit Provider Obstetrics & Gynecology
PROC: (CPT 59151; principal; 2020-04-17 13:00)
PROC: (CPT 49320; 2020-04-17 13:00)
DX: O00.101 Right tubal pregnancy without intrauterine pregnancy (principal); K66.1 Hemoperitoneum; Z87.891 Personal history of nicotine dependence
CPT/HCPCS: 59151; 58120; 88302; 88305; A9270; J0330; J0690; J1100; J1170; J2250; J2405; J2704; J3010; J7030; J7120

== ENCOUNTER 2020-11-21 11:31 | Outpatient (CLI) | payer OTHER, SELFPAY ==
[2020-11-21 12:06] LABS: Alanine Aminotransferase 8 U/L (4-35); Albumin Level 3.8 g/dL (3.5-5.1); Alkaline Phosphatase 56 U/L (38-126); Anion Gap 8 mmol/L (8-16); Aspartate Amino Transferase 16 U/L (14-36); Bilirubin,Total 0.4 mg/dL (0.2-1.3); Blood Urea Nitrogen 6 mg/dL (7-17); Calcium 9.1 mg/dL (8.4-10.2); Carbon Dioxide 22 mmol/L (22-30); Chloride 105 mmol/L (98-107); Estimated Glomerular Filt Rate > 60; Glucose 108 mg/dL (65-105); Lactate Dehydrogenase 305 U/L (313-618); Potassium 3.8 mmol/L (3.4-5.0); Sodium 135 mmol/L (137-145); Uric Acid 2.4 mg/dL (2.5-7.5)
[2020-11-21 12:18] LABS: Hemoglobin A1C 5.7 % (<5.7)
[2020-11-21 12:36] LABS: Creatinine Urine 531.6 mg/dL
[2020-11-21 12:38] LABS: Total Protein Urine Random < 5 mg/dL; Ur Ttl Prot Creatinine Ratio < 0.01 mg/mg (0-0.20)
== END 2020-11-21 11:32 | disposition home or self-care (01) ==
LOC: ANHLAB 11:32
PROVIDERS: Visit Provider Obstetrics & Gynecology
DX: Z34.92 Encounter for supervision of normal pregnancy, unspecified, second trimester (principal); Z3A.00 Weeks of gestation of pregnancy not specified
CPT/HCPCS: 36415; 80053; 82570; 83036; 83615; 84156; 84443; 84550

== ENCOUNTER 2021-03-01 10:54 | Outpatient (CLI) | payer OTHER, SELFPAY ==
[2021-03-01 11:41] LABS: Hematocrit 31.5 % (37.0-47.0); Mean Corpuscular HGB Conc 31.7 g/dl (32-36); Mean Corpuscular Hemoglobin 24.7 pg (26-34); Mean Corpuscular Volume 77.8 fl (80-100); Mean Platelet Volume 12.2 fl (7.4-10.4); Platelet Count Result 184 k/mm3 (150-375); Red Blood Count 4.05 M/mm3 (4.2-5.4); Red Cell Distribution Width 14.1 % (11.5-14.5); White Blood Count 7.7 K/mm3 (4.5-10.0)
[2021-03-01 12:31] LABS: HIV 1/2 Ab P24 Ag Result Negative (Negative)
[2021-03-01 14:14] LABS: Hepatitis B Surface Antigen Negative (Negative); Rubella IgG Antibody 22.8 IU/ML
[2021-03-02 10:09] LABS: Rapid Plasma Reagin Non-Reactive (NonReactive)
[2021-03-03 15:58] LABS: CMV IgG Antibody <0.60 U/mL (<0.60)
[2021-03-04 16:23] LABS: Varicella IgM Antibody <=0.90 (<=0.90)
== END 2021-03-01 10:55 | disposition home or self-care (01) ==
PROVIDERS: Visit Provider Obstetrics & Gynecology
DX: N92.5 Other specified irregular menstruation (principal)
CPT/HCPCS: 36415; 84702; 85027; 86592; 86644; 86703; 86747; 86762; 86787; 86850; 86900; 86901; 87086; 87088; 87340; G0432

== ENCOUNTER 2021-04-29 10:26 | Outpatient (RCR) | payer OTHER, SELFPAY ==
[2021-03-01 10:40] VITALS: BP 110/63; PULSE 91
[2021-03-04 11:18] VITALS: BP 107/62; PULSE 90
[2021-03-08 12:45] VITALS: BP 104/57; PULSE 81
[2021-03-11 09:58] VITALS: BP 119/70; PULSE 84
[2021-03-15 09:56] VITALS: BP 108/69; PULSE 99
[2021-03-22 10:20] VITALS: BP 110/70; PULSE 88
[2021-03-25 10:08] VITALS: BP 117/71; PULSE 88
[2021-03-29 10:11] VITALS: BP 119/66; PULSE 89
[2021-04-01 10:04] VITALS: BP 121/71; PULSE 119
[2021-04-06 10:07] VITALS: BP 109/69; PULSE 87
--- NOTE | 2021-04-06 10:32 | PC.NURSE ---
BPP 05/02
[2021-04-08 10:16] VITALS: BP 115/67; PULSE 90
[2021-04-12 14:55] VITALS: BP 124/69; PULSE 90
[2021-04-15 10:05] VITALS: BP 122/81; PULSE 91
[2021-04-19 10:59] VITALS: BP 120/70; PULSE 84
[2021-04-26 09:59] VITALS: BP 123/79; PULSE 82
--- NOTE | 2021-04-26 10:37 | PC.NURSE ---
BPP 05/02.
--- NOTE | ~2021-04-29 | US_ITS ---
EXAMINATION: US OB BPP wo non-stress DATE: 04/12/2021 14:36 INDICATION: Gestational diabetes, third trimester TECHNIQUE: Real-time pelvic ultrasound was performed. The interpreting radiologist was not present fo r the study. COMPARISON: 04/06/2021 FINDINGS: There is a single living fetus in vertex presentation. The placenta is posterior/fundal. heart rate is 165 beats per minute (bpm). Biophysical profile performed by the technologist: breathing (30 sec sustained breathing in 30 minutes): 2 out of 2 movement (3 gross body movements in 30 minutes): 2 out of 2 tone (one episode of ymbrlip-cuacjozhs-tqaavpk limb movement): 2 out of 2 Amniotic fluid pocket (2 cm): 2 out of 2 Total score: 8 out of 8 IMPRESSION: 1. Single living fetus in vertex presentation. 2. Biophysical profile 8 out of 8. Reviewed, dictated and finalized at location B.
--- NOTE | ~2021-04-29 | US_ITS ---
EXAMINATION: US OB BPP wo non-stress EXAM DATE: 04/19/2021 11:19 INDICATION: Gestational diabetes. 3rd trimester. TECHNIQUE: Pelvic obstetrical transabdominal sonogram was performed by a technologist. There are mu ltiple grayscale and Doppler images available for interpretation. Comparison is made to prior examina tion from 04/12/2021. FINDINGS: There is a single fetus identified in the posterior fundal presentation with a heart rate o f 150 beats per minute. The placenta is located in the vertex position. There is no sonographic evid ence of retroplacental hemorrhage identified. Subjectively expected amount of amniotic fluid. BIOPHYSICAL PROFILE (performed by the technologist) breathing (30 sec sustained breathing in 30 minutes): 2 out of 2 movement (3 gross body movements in 30 minutes): 2 out of 2 tone (one episode of umkmlay-upgaqceug-tkfgree limb movement): 2 out of 2 Amniotic fluid pocket (2 cm): 2 out of 2 Total score: 8 out of 8 IMPRESSION: 1. Single fetus with heart rate of 150 bpm. 2. Normal biophysical profile score of 8 out of 8. Reviewed, dictated and finalized at location B.
--- NOTE | ~2021-04-29 | US_ITS ---
EXAMINATION: US OB BPP wo non-stress EXAM DATE: 03/08/2021 13:49 INDICATION: Gestational diabetes. 3rd trimester. TECHNIQUE: Pelvic obstetrical transabdominal sonogram was performed by a technologist. There are mu ltiple grayscale and Doppler images available for interpretation. FINDINGS: There is a single fetus identified in vertex presentation with a heart rate of 155 beats pe r minute. The placenta is located in the posterior position. There is no sonographic evidence of ret roplacental hemorrhage identified. BIOPHYSICAL PROFILE (performed by the technologist) breathing (30 sec sustained breathing in 30 minutes): 2 out of 2 movement (3 gross body movements in 30 minutes): 2 out of 2 tone (one episode of exnqiil-xxaqvwedc-jwhscjl limb movement): 2 out of 2 Amniotic fluid pocket (2 cm): 2 out of 2 Total score: 8 out of 8 IMPRESSION: 1. Single fetus with heart rate of 155 bpm. 2. Normal biophysical profile score of 8 out of 8. Reviewed, dictated and finalized at location B.
--- NOTE | ~2021-04-29 | US_ITS ---
EXAMINATION: US OB BPP wo non-stress DATE: 03/22/2021 10:32 INDICATION: Gestational diabetes. Third trimester. TECHNIQUE: Real-time pelvic ultrasound was performed. COMPARISON: Ultrasound 03/15/2021 FINDINGS: There is a single living fetus in vertex presentation. The placenta is posterior. heart rate i s 142 beats per minute (bpm). Biophysical profile performed by the technologist: breathing (30 sec sustained breathing in 30 minutes): 2 out of 2 movement (3 gross body movements in 30 minutes): 2 out of 2 tone (one episode of btfivht-nqzlqjbyt-eynjjya limb movement): 2 out of 2 Amniotic fluid pocket (2 cm): 2 out of 2 Total score: 8 out of 8 IMPRESSION: 1. Single living fetus in vertex presentation. 2. Biophysical profile 8 out of 8. Reviewed, dictated and finalized at location A.
--- NOTE | ~2021-04-29 | US_ITS ---
EXAMINATION: US OB BPP wo non-stress DATE: 04/06/2021 10:27 INDICATION: Gestational diabetes. Third trimester. TECHNIQUE: Real-time pelvic ultrasound was performed. COMPARISON: Ultrasound 03/29/2021 FINDINGS: There is a single living fetus in vertex presentation. The placenta is posterior. There is a 3.7 cm hypoechoic and anechoic mass in the margin of the placenta. heart rate is 173 beats per minute (bpm). Biophysical profile performed by the technologist: breathing (30 sec sustained breathing in 30 minutes): 2 out of 2 movement (3 gross body movements in 30 minutes): 2 out of 2 tone (one episode of qdjnhwm-gxhkwunkj-txotoqq limb movement): 2 out of 2 Amniotic fluid pocket (2 cm): 2 out of 2 Total score: 8 out of 8 IMPRESSION: 1. Single living fetus in vertex presentation. 2. Biophysical profile 8 out of 8. 3. 3.7 cm mass in the margin of the placenta, which may be a venous jimenez or hematoma. Reviewed, dictated and finalized at location A. IMPRESSION: 1. Single living fetus in vertex presentation. 2. Biophysical profile 8 out of 8. 3. 3.7 cm mass in the margin of the placenta, which may be a venous jimenez or he matoma.
--- NOTE | ~2021-04-29 | US_ITS ---
EXAMINATION: US OB BPP wo non-stress DATE: 03/29/2021 11:10 INDICATION: Gestational diabetes during third trimester TECHNIQUE: Real-time pelvic ultrasound was performed. The interpreting radiologist was not present fo r the study. COMPARISON: 03/22/2021 FINDINGS: There is a single living fetus in vertex presentation. The placenta is posterior. heart rate is 147 beats per minute (bpm). Biophysical profile performed by the technologist: breathing (30 sec sustained breathing in 30 minutes): 2 out of 2 movement (3 gross body movements in 30 minutes): 2 out of 2 tone (one episode of dspdutc-utoxmzaqz-loixans limb movement): 2 out of 2 Amniotic fluid pocket (2 cm): 2 out of 2 Total score: 8 out of 8 IMPRESSION: 1. Single living fetus in vertex presentation. 2. Biophysical profile 8 out of 8. Reviewed, dictated and finalized at location A.
--- NOTE | ~2021-04-29 | US_ITS ---
US OB BPP wo non-stress DATE: 04/26/2021 10:34 INDICATION: Gestational diabetes mellitus TECHNIQUE: Real-time imaging and Doppler analysis COMPARISON: 04/19/2021 obstetrical ultrasound with biophysical profile FINDINGS: Live single intrauterine gestation, fetus in longitudinal lie, vertex presentation. Posteri or placenta. Subjectively normal amount of amniotic fluid. heart rate of 152 bpm. BIOPHYSICAL PROFILE reported by telecom field technician: breathin out of 2 movement: 2 out of 2 tone: 2 out of 2 Amniotic fluid pocket: 2 out of 2 Total score: 8 out of 8 IMPRESSION: Normal biophysical profile score of 8 out of 8 Reviewed, dictated and finalized at Location A. Reviewed, dictated and finalized at location B.
--- NOTE | ~2021-04-29 | US_ITS ---
EXAMINATION: US OB BPP wo non-stress EXAM DATE: 03/01/2021 10:39 INDICATION: Gestational diabetes. Biophysical profile requested. 3rd trimester. TECHNIQUE: Pelvic obstetrical transabdominal sonogram was performed by a technologist. There are mu ltiple grayscale and Doppler images available for interpretation. Comparison is made to prior examina tion from 04/15/2020. FINDINGS: There is a single fetus identified in vertex presentation with a heart rate of 130 beats pe r minute. The placenta is located in the posterior position. There is no sonographic evidence of ret roplacental hemorrhage identified. There is subjectively expected amount of amniotic fluid. BIOPHYSICAL PROFILE (performed by the technologist) breathing (30 sec sustained breathing in 30 minutes): 2 out of 2 movement (3 gross body movements in 30 minutes): 2 out of 2 tone (one episode of madppip-ufowmzffl-etfucpn limb movement): 2 out of 2 Amniotic fluid pocket (2 cm): 2 out of 2 Total score: 8 out of 8 IMPRESSION: 1. Single fetus with heart rate of 130 bpm. 2. Normal biophysical profile score of 8 out of 8. Reviewed, dictated and finalized at location A.
--- NOTE | ~2021-04-29 | US_ITS ---
EXAMINATION: US OB BPP wo non-stress DATE: 03/15/2021 10:27 INDICATION: Gestational diabetes, third trimester TECHNIQUE: Real-time pelvic ultrasound was performed. The interpreting radiologist was not present fo r the study. COMPARISON: 03/08/2021 FINDINGS: There is a single living fetus in vertex presentation. The placenta is posterior/left. heart ra te is 147 beats per minute (bpm). Biophysical profile performed by the technologist: breathing (30 sec sustained breathing in 30 minutes): 2 out of 2 movement (3 gross body movements in 30 minutes): 2 out of 2 tone (one episode of lgapgwf-oxyiniaqm-cxigsbp limb movement): 2 out of 2 Amniotic fluid pocket (2 cm): 2 out of 2 Total score: 8 out of 8 IMPRESSION: 1. Single living fetus in vertex presentation. 2. Biophysical profile 8 out of 8. Reviewed, dictated and finalized at location A.
== END 2021-04-30 08:12 | disposition home or self-care (01) ==
LOC: ANHOBOP 10:26
PROVIDERS: Visit Provider Obstetrics & Gynecology
DX: O24.419 Gestational diabetes mellitus in pregnancy, unspecified control (principal); Z3A.30 30 weeks gestation of pregnancy; Z3A.31 31 weeks gestation of pregnancy; Z3A.32 32 weeks gestation of pregnancy; Z3A.33 33 weeks gestation of pregnancy; Z3A.34 34 weeks gestation of pregnancy; Z3A.35 35 weeks gestation of pregnancy; Z3A.36 36 weeks gestation of pregnancy; Z3A.37 37 weeks gestation of pregnancy; Z3A.38 38 weeks gestation of pregnancy; Z3A.40 40 weeks gestation of pregnancy
CPT/HCPCS: 59025; 76819

== ENCOUNTER 2021-04-29 11:11 | Outpatient (CLI) | payer OTHER, SELFPAY ==
[2021-04-29 11:37] LABS: Hematocrit 29.9 % (37.0-47.0); Hemoglobin 9.2 g/dL (12.0-15.0); Mean Corpuscular HGB Conc 30.8 g/dl (32-36); Mean Corpuscular Hemoglobin 23.1 pg (26-34); Mean Corpuscular Volume 74.9 fl (80-100); Platelet Count Result 192 k/mm3 (150-375); Red Blood Count 3.99 M/mm3 (4.2-5.4); Red Cell Distribution Width 15.1 % (11.5-14.5); White Blood Count 6.7 K/mm3 (4.5-10.0)
[2021-04-30 10:28] LABS: Rapid Plasma Reagin Non-Reactive (NonReactive)
== END 2021-04-29 11:12 | disposition home or self-care (01) ==
LOC: ANHLAB 11:14
PROVIDERS: Visit Provider Obstetrics & Gynecology
DX: O34.219 Maternal care for unspecified type scar from previous cesarean delivery (principal); Z3A.39 39 weeks gestation of pregnancy
CPT/HCPCS: 36415; 85027; 86592; 86850; 86900; 86901

== ENCOUNTER 2021-04-30 05:13 | Inpatient (IN) | payer OTHER, SELFPAY ==
[2021-04-30] VITALS (49 sets, daily range): BP systolic 88–123; BP diastolic 44–79; PULSE 61–87; RESP 15–18; TEMP 36.1–36.6; O2SAT 95–100; BMI 38.8
--- NOTE | 2021-04-30 05:06 | P.HP_ITS ---
H&P: HPI History of Present Illness Date/Time: 04/30/21 05:06 30-year-old 5 para 2021 female at 39 weeks presents for repeat delivery. We have discussed tubal ligation and she declines. Prior C- section 1. Due to distress and 2nd was for repeat. records are on the chart and this has been complicated by gestational diabetes which has been well treated with diet and exercise. testing has been performed which has all been within normal limits as well. Chief Complaint: Review of Systems Review of Systems: All systems reviewed & are unremarkable except as noted in HPI and below PMFSH Past Medical History Medical History (Updated 04/30/21 @ 05:09 by Dwight Richards MD) Gestational diabetes mellitus Obesity Surgical History Surgical History (Updated 04/30/21 @ 05:09 by Dwight Richards MD) Previous delivery, delivered Family History Family History Father Diabetes mellitus Social History Social History Smoking packs per day: 0.75 Smoking cigarettes per day: 15.0 Years smoked: 6 Smoking pack-years: 4.50 Smoking status: Former smoker Tobacco type: cigarettes Additional smoking assessment comments: QUIT 5 YEARS AGO Substance use: never Gender identity (if verbalized by the patient): Female Spiritual care concerns: No Meds Home Medications and Allergies Home Medications Medication Instructions Recorded Confirmed Type metformin 500 mg PO DAILY 03/22/21 04/12/21 History PNV cmb#95-ferrous fumarate-FA 1 tablet PO DAILY 03/25/21 04/12/21 History [] Allergies Allergy/AdvReac Type Severity Reaction Status Date / Time No Known Allergies Allergy Verified 04/16/20 11:44 Exam Const: General: cooperative and healthy appearing Resp: Effort & Inspection: normal respiratory effort Auscultation: clear to auscultation bilaterally Cardio: Rate: regular rate Rhythm: regular rhythm GI: Inspection: normal to inspection Percussion: Yes normal to percussion Auscultation: normal bowel sounds : External Female Exam: normal external appearance Bimanual exam- vagina & uterus: enlarged ( Fundal height 39cm with heart tones 140) Assessment and Plan Assessment and plan (1) 39 weeks gestation of : Code(s): Z3A.39 - 39 weeks gestation of Status: Acute (2) Previous delivery affecting : Code(s): O34.219 - Maternal care for unspecified type scar from previous delivery Status: Acute (3) Gestational diabetes mellitus: Code(s): O24.419 - Gestational diabetes mellitus in , unspecified control Status: Acute Additional Plan 1. Proceed with repeat low-transverse section.
--- NOTE | 2021-04-30 05:09 | WPDHPUPDATE1 ---
History and Physical Update Update Date/Time: 04/30/21 05:09 History and Physical has been reviewed, including an updated exam of the patient. There are NO changes in the patient's condition. Risks, benefits, and alternatives have been discussed and questions answered. Patient agrees to proceed with procedure.
--- NOTE | 2021-04-30 05:13 | LDADM ---
This patient, Jory Matthews, was admitted to Labor/Delivery/Recovery 120 on 04/30/21 at 05:13. Plans for labor, pain management and were discussed with patient. Patient/family oriented to hospital policies and general routines including ID bracelet, bed and alarms, visiting hours, pain management, procedures, bathroom and other care routines, personal items, smoking policy, room service/diet and guest tray routines, security routines, and visiting hours. Patient/Family are encouraged to report perceived risks to care and to ask questions if they do not understand what they are told or what they should do. See OBIX for further documentation.
[2021-04-30] MEDS: LACTATED RINGERS 1,000 ML 125 ML IV CONT ×2 (05:54→07:00)
[2021-04-30 06:44] LABS: Glucose Point of Care 78 mg/dl (65-105)
--- NOTE | 2021-04-30 06:54 | WPDANESEPPF ---
Anes - Initial Pre Proc Eval Procedure: Operation Date: 04/30/21 07:30 Proposed Procedures p Repeat Section - Dwight Richards MD Date/Time: 04/30/21 06:54 Surgeon: Dwight Richards MD Pre Op Diagnosis: Patient Data Age: 30 Gender: F Height: 1.68 m Weight: 109.1 kg Last Vital Signs Temp 36.6 C 04/30/21 06:00 Pulse 73 04/30/21 06:01 Resp 16 04/30/21 06:00 BP 121/68 04/30/21 06:01 Allergies Allergy/AdvReac Type Severity Reaction Status Date / Time No Known Allergies Allergy Verified 04/16/20 11:44 Home Medications Medication Instructions Recorded Confirmed Type metformin 500 mg PO DAILY 03/22/21 04/12/21 History PNV cmb#95-ferrous fumarate-FA 1 tablet PO DAILY 03/25/21 04/12/21 History [] Laboratory Tests 04/30/21 06:40 POC Capillary Glucose 78 mg/dl mg/dl (65-105) Patient hx anesthesia problems: none Family hx anesthesia problems: none PMFSH Past Medical History Medical History Gestational diabetes mellitus Obesity Surgical History Surgical History Previous delivery, delivered Family History Family History Father Diabetes mellitus Social History Social History Smoking packs per day: 0.75 Smoking cigarettes per day: 15.0 Years smoked: 6 Smoking pack-years: 4.50 Smoking status: Former smoker Additional smoking assessment comments: QUIT 5 YEARS AGO Substance use: never Gender identity (if verbalized by the patient): Female Spiritual care concerns: No Anes - Eval Final PreProcedure Day of Procedure 04/30/21 06:54 Patient weight: obese Heart: regular rate and rhythm Lungs: clear to auscultation Airway: Mallampati scale class 1 Neurological: alert and oriented Last oral intake: >/= 8 hours ASA classification: III Emergent: no Anesthetic plan: proceed Anesthesia type and monitoring: regional spinal and standard monitoring Informed Consent: The patient's anesthetic plan and its attendant risks and benefits were discussed with the patient/family/POA. Questions were solicited and answers provided to the satisfaction of the patient/family/POA.
[2021-04-30] MEDS: ceFAZolin 2 GM/D5W 50 ML 2 GM/50 ML BAG IVPB (07:22)
--- NOTE | 2021-04-30 08:13 | P.PCNOB_ITS ---
OB - Delivery Note Procedure Procedure: Procedures Operation Date: 04/30/21 07:30 <No data on this case meets the specified criteria> events: Previous and Gestational Diabetes Route of delivery: Specimen: Yes Quantitative Blood Loss (ml): 385 Anesthesia type: Spinal Disposition: floor [place] Baby Weeks of gestation at delivery: 39 gender: Male Weight (pounds): 8 Weight (ounces): 1 score one minute: 8 score five minutes: 9 Narrative: Patient prepped and draped in usual manner for this procedure. Pfannenstiel incision was made carried down the fascia which was then extended bilaterally the length of the skin incision. Rectus muscles then bluntly disse cted peritoneum was entered bladder flap developed without difficulty. Uterus was scored clear fluid noted. Vertex was then delivered rest of baby without difficulty. Its cord clamped and cut placenta removed manually. Uterus was exteriorized cleared of membranes and clots and closed using 0 Monocryl running interlocking manner. Uterus was turned the abdomen noted be hemostatic and the fascia was approximated using 0 Vicryl from left angle midline right angle to the midline. Small amount of bleeding and a right angle muscle with rendered hemostatic with cautery and Hemabate. Fascia was then approximated 0 Vicryl from left angle midline and right angle midline and then the subcutaneous tissue was approximated 0 plain suture followed by staple closure of skin. At this point the procedure was considered terminated with immediate postop condition mother and baby both excellent.
[2021-04-30] MEDS: OXYTOCIN 30 UNITS/NS 500 ML 30 UNITS/500 ML BAG 125 UNITS IV CONT (08:48)
[2021-04-30] MEDS: KETOROLAC 30 MG/ML VIAL (*BKC) IV PUSH (09:48)
[2021-04-30] MEDS: HYDROcodone/acetaminophen (*CRX) 10-325 MG TABLET 1 TAB PO ×2 (11:37→23:14)
[2021-04-30] MEDS: DEXTROSE 5%/0.45% SOD CHL 1,000 ML 125 ML IV CONT (15:10)
--- NOTE | 2021-04-30 16:50 | PC.NURSE ---
Mother is able to independently latch infant with appropriate positioning/alignment. She denies any nipple discomfort, is feeding as required and waking to feed if needed. Mother reports other 2 children for several months, with latching difficulties at first. Reviewed infant feeding cues, frequencies, duration of feedings, feeding elimination flow sheet, and signs of adequate intake. Nipple care reviewed. Instructed mother to call out for RN assistance if she is unable to latch for feeding or she has discomfort with nursing. Instructed feeding should be initiated three hours from start of last feeding or if feeding cues are noted before. Mother voiced understanding of information shared.
[2021-04-30] MEDS: HYDROcodone/acetaminophen (*CRX) 5-325 MG TABLET 1 TAB PO (17:08)
[2021-04-30] MEDS: DOCUSATE SODIUM 100 MG CAPSULE PO (17:08)
[2021-04-30] MEDS: POLYSACCHARIDE IRON COMPLEX 150 MG CAPSULE PO (17:08)
[2021-04-30] MEDS: IBUPROFEN 600 MG TABLET PO ×2 (17:10→23:15)
--- NOTE | 2021-04-30 19:30 | PC.NURSE ---
1424 Pt admitted to room 283 per stretcher from labor and delivery after repeat delivery of viable male infant today at [address] Richards. Mother is a and is choosing to breast feed . FOB present. Pt made comfortable in bed. VSS and assessment WNL.
[2021-04-30] MEDS: SIMETHICONE 80 MG TAB.CHEW PO (23:15)
[2021-05-01] MEDS: SIMETHICONE 80 MG TAB.CHEW PO ×4 (02:57→16:37)
[2021-05-01] MEDS: HYDROcodone/acetaminophen (*CRX) 10-325 MG TABLET 1 TAB PO ×3 (02:57→16:39)
[2021-05-01 05:30] VITALS: BP 106/62; PULSE 83; RESP 16; TEMP 36.1; O2SAT 100
[2021-05-01] MEDS: IBUPROFEN 600 MG TABLET PO ×3 (05:39→16:38)
[2021-05-01 05:40] LABS: Glucose Point of Care 124 mg/dl (65-105)
[2021-05-01 05:56] LABS: Basophils Percent Auto 0.1 % (0.2-1.2); Eosinophils Percent Auto 0.5 % (0-4.4); Hematocrit 27.5 % (37.0-47.0); Hemoglobin 8.1 g/dL (12.0-15.0); Immature Granulocyte Absolute 0.05 K/mm3 (0.00-0.031); Immature Granulocyte Percent A 0.6 % (0-0.5); Lymphocytes Absolute Auto 1.87 K/mm3 (0.9-3.2); Lymphocytes Percent Auto 23.1 % (18.3-44.2); Mean Corpuscular HGB Conc 29.5 g/dl (32-36); Mean Corpuscular Volume 78.1 fl (80-100); Mean Platelet Volume 11.5 fl (7.4-10.4); Monocytes Absolute Auto 0.6 K/mm3 (0.1-0.6); Monocytes Percent Auto 7.8 % (2.6-8.5); Neutrophils Absolute Auto 5.5 K/mm3 (1.3-6.7); Neutrophils Percent Auto 67.9 % (45.5-73.1); Platelet Count Result 148 k/mm3 (150-375); Red Blood Count 3.52 M/mm3 (4.2-5.4); Red Cell Distribution Width 15.6 % (11.5-14.5); White Blood Count 8.1 K/mm3 (4.5-10.0)
[2021-05-01 07:53] LABS: Hypochromasia 2+ (NORMAL)
[2021-05-01 10:40] VITALS: BP 121/62; PULSE 89; RESP 18; TEMP 36.5; O2SAT 100
[2021-05-01] MEDS: POLYSACCHARIDE IRON COMPLEX 150 MG CAPSULE PO ×2 (11:10→16:38)
[2021-05-01] MEDS: DOCUSATE SODIUM 100 MG CAPSULE PO ×2 (11:10→16:37)
[2021-05-01] MEDS: metFORMIN HCL XR 500 MG TAB.SR.24H PO (11:10)
[2021-05-01] MEDS: MULTIVIT/MIN/PREN/FOL AC/IRON TABLET 1 TAB PO (11:10)
--- NOTE | 2021-05-01 14:41 | WPDANLDNPN2 ---
Anes-Prog Note L&D-Neuraxial Date/Time: 05/01/21 14:41 Neuraxial medications: intrathecal PF morphine Opiod-related complaints: none Patient feedback: Patient satisfied with post-operative pain management.
--- NOTE | 2021-05-01 14:41 | WPDANLDPN2 ---
Anes-Prog Note L&D Date/Time: 05/01/21 14:41 Comfortable throughout: section Neuraxial method: spinal Epidural/Spinal procedure site: clean & non-tender Neuro status: Neuro function grossly intact. Cardiovascular status: normal Respiratory status: normal Airway patency: baseline Mental status: baseline Post-Op hydration status: normal Vital Signs: Last Vital Signs Temp 36.1 C L 05/01/21 05:30 Pulse 83 05/01/21 05:30 Resp 16 05/01/21 05:30 BP 106/62 05/01/21 05:30 Pulse Ox 100 05/01/21 05:30 Pain score (VAS): 0 I/O: Intake & Output 04/30/21 05/01/21 05/01/21 23:59 07:59 15:59 Intake Total 2200 800 Output Total 1175 1400 Balance 1025 -600 Post-procedural complaints: none Patient feedback: Patient satisfied with anesthetic care.
[2021-05-01 19:55] VITALS: BP 119/68; PULSE 92; RESP 16; TEMP 36.4; O2SAT 99
--- NOTE | 2021-05-01 20:20 | PC.NURSE ---
Patient viewed the discharge video Mother & Baby Care, The First Two Weeks online. Patient was given the opportunity and encouraged to ask questions. Patient verbalized understanding of information shared and has been given the mother/baby guide for home reference.
[2021-05-02] MEDS: IBUPROFEN 600 MG TABLET PO ×4 (00:29→23:49)
[2021-05-02] MEDS: HYDROcodone/acetaminophen (*CRX) 5-325 MG TABLET 1 TAB PO ×4 (00:29→23:50)
[2021-05-02 07:55] VITALS: BP 117/68; PULSE 86; RESP 16; TEMP 36.9; O2SAT 98
--- NOTE | 2021-05-02 08:09 | PM.OBPNVD ---
OB - PN: Subj Subjective Date/time seen: 05/02/21 08:09 Diet/ambulation without difficulty. Still sore, mostly R sided. Overall feeling well. Not ready to go home today. OB - PN: Obj Data Labs CBC & Chem 7: 05/01/21 05:48 OB - PN A/P Time Spent With Patient Time: Total time spent is greater than 50% in coordination of care (as documented) at patient's floor/unit and/or counseling patient: Exam Narrative: inc well healed. No masses/chase tender (R>L)
--- NOTE | 2021-05-02 08:10 | P.DS_ITS ---
DS: Admitting Diagnosis Admitting Diagnosis DS: Discharge Diagnosis Discharge Diagnosis (1) S/P repeat low transverse : Code(s): Z98.891 - History of uterine scar from previous surgery Status: Acute OB - DS: Summary OB Procedures : None OB Procedures Intrapartum: OB Procedures: : None Peripartum Data Procedures: Procedures Operation Date: 04/30/21 07:30 Actual Procedure Side Surgeon p Repeat Section Dwight Richards MD Time Spent with Patient Time attestation: Total time spent providing and/or coordinating discharge services: Discharge Plan Discharge Discharging Clinician: Dwight Richards Anticipated Discharge Date/Time: 05/03/21 08:00 Patient Disposition: Home, Self-Care Activity: as tolerated Diet: as tolerated Wound Care Instructions: incision open to air Discharge Instructions: Office Monday for staple removal Patient Instructions: Antibiotic Form Stand Alone Forms: General Discharge Information Follow-up/Referrals: Dwight Richards MD [Physician] - 3 Weeks Discharge Medications: New hydrocodone-acetaminophen 5-325 mg Tablet 1 tablet PO Q6H Qty: 20 RF: 0 ibuprofen 600 mg Tablet 600 mg PO Q6H PRN (Reason: Cramping) Qty: 30 RF: 0 Continued PNV cmb#95-ferrous fumarate-FA [] 28 mg iron- 800 mcg Tablet 1 tablet PO DAILY RF: 0 Discontinued metformin 500 mg Tablet Extended Release 24 Hr 500 mg PO DAILY RF: 0 Date of admission: 04/30/21 05:13 Primary Care Provider: PHYSICIAN,SENIOR STAFF CONSULTANT Admitting Provider: Dwight Richards Attending physician on admission: Dwight Richards Condition: Stable
[2021-05-02] MEDS: metFORMIN HCL XR 500 MG TAB.SR.24H PO (08:16)
[2021-05-02] MEDS: MULTIVIT/MIN/PREN/FOL AC/IRON TABLET 1 TAB PO (08:16)
[2021-05-02] MEDS: DOCUSATE SODIUM 100 MG CAPSULE PO ×2 (08:17→16:13)
[2021-05-02] MEDS: POLYSACCHARIDE IRON COMPLEX 150 MG CAPSULE PO ×2 (08:17→16:13)
[2021-05-02 19:40] VITALS: BP 127/80; PULSE 95; RESP 16; TEMP 37.1; O2SAT 99
--- NOTE | 2021-05-03 08:00 | PC.NURSE ---
PT introductions made and plan of care discussed per post op c section, pain management, breast feeding, daily care activities and pending discharge to home. PT received such instructions per one to one discussion, mom baby care guide and demonstration. Pt and significant other both recipients of such instructions. no barriers to learning identified. PT verbalized understanding
[2021-05-03 08:10] VITALS: BP 127/78; PULSE 87; RESP 18; TEMP 36.3; O2SAT 100
--- NOTE | 2021-05-03 08:15 | PC.NURSE ---
Mother is able to independently latch infant with appropriate positioning/alignment. She denies any nipple discomfort, is feeding as required and waking to feed if needed. has had at least 8 effective feedings in the past 24 hours, and is currently meeting outcomes for weight, output, jaundice and feeding frequencies. Mother states she feels confident to continue effective at home. Reviewed transition to breast milk, signs of adequate intake, and engorgement/relief. Instructed to call ICP if intake/output less than required. Reviewed regular medications mother is taking. Information provided per Elizabeth. Reviewed community resources on the [facility] website and in the Mom/Baby guide. Information on outpatient services provided. Mother has no further questions at this time.
[2021-05-03 10:30] VITALS: PULSE 87; RESP 18; O2SAT 100
[2021-05-03] MEDS: MULTIVIT/MIN/PREN/FOL AC/IRON TABLET 1 TAB PO (10:42)
[2021-05-03] MEDS: SIMETHICONE 80 MG TAB.CHEW PO (10:42)
[2021-05-03] MEDS: DOCUSATE SODIUM 100 MG CAPSULE PO (10:42)
[2021-05-03] MEDS: POLYSACCHARIDE IRON COMPLEX 150 MG CAPSULE PO (10:42)
[2021-05-03] MEDS: HYDROcodone/acetaminophen (*CRX) 5-325 MG TABLET 1 TAB PO (10:43)
[2021-05-03] MEDS: metFORMIN HCL XR 500 MG TAB.SR.24H PO (10:43)
[2021-05-03] MEDS: IBUPROFEN 600 MG TABLET PO (10:44)
[2021-05-03] MEDS: LANOLIN (LANSINOH) 7.5 GM CREAM 1 APPLIC TOPICAL (10:45)
--- NOTE | 2021-05-03 12:00 | PC.NURSE ---
PT received discharge instructions per protocol and verbalized understanding of such care.
--- NOTE | 2021-05-05 07:21 | PM.OBDSVD ---
DS: Admitting Diagnosis Admitting Diagnosis OB - DS: Summary OB Procedures : None OB Procedures Intrapartum: OB Procedures: : None Peripartum Data Procedures: Procedures Operation Date: 04/30/21 07:30 Actual Procedure Side Surgeon p Repeat Section Dwight Richards MD Time Spent with Patient Time attestation: Total time spent providing and/or coordinating discharge services: Discharge Plan Discharge Discharging Clinician: Dwight Richards Anticipated Discharge Date/Time: 05/03/21 08:00 Patient Disposition: Home, Self-Care Activity: as tolerated Diet: as tolerated Wound Care Instructions: incision open to air Discharge Instructions: Education: Mom and Baby Guide Given to: Mother Follow-Up: Call your delivering provider's office for an appointment to be seen in: 3 weeks Mom and baby should come to the [facility] for the follow-up appointment. Appointment Date/Time: May 05, 2021 at 8:00 am What to expect at your follow-up visit: Blood Pressure Check Removal of Ynei Call [phone] if you are unable to keep your appointment time. BREAST CARE: * Wear a snug supportive bra. * For engorgement discomfort: Breast Feeding: * Apply warm moist washcloths * Express milk as needed to relieve engorgement * Wear loose clothing Bottle Feeding: * May apply ice packs * For sore nipples: * Identify correct latch-on * Apply warm moist washcloths before and after nursing * Air dry nipples after nursing * May apply Lansinoh cream to nipples ABDOMINAL INCISION: (if applicable) * Allow incision to air dry * Do NOT use lotions for powders on your incision * When showering, allow soap and water to run over the incision, but do not wash incision PERINEAL CARE: * Until bleeding stops, use your may bottle after urinating * Change your pad frequently throughout the day * No tub baths until seen by your physician - You may shower ACTIVITY: * Rest as much as possible. * Do not exercise or lift anything heavier than your baby (such as laundry or other children.) * Avoid stairs or driving as much as possible. * Do not put anything into the vagina. No douching, tampons, or sexual activity until seen by physician. NOTIFY PHYSICIAN IF YOU HAVE ANY QUESTIONS OR IF ANY OF THE FOLLOWING SYMPTOMS OCCUR: * If your incision becomes red, swollen, or more painful than what you have experienced in the hospital. * If your vaginal bleeding becomes foul smelling. * If your vaginal bleeding becomes more heavy than a period or if your bleeding changes from pink to bright red. However, you may pass an occasional walnut-sized clot once or twice for the first week . * If you experience a sharp, shooting pain in you calves. * If you discover a hard, reddened area on your breast or if you experience flu-like symptoms. * If you have a fever of 100.4 or greater DIET: * Eat regular, well-balanced meals. * Drink plenty of fluids daily. If , drink to thirst.Office Monday for staple removal Patient Instructions: Antibiotic Form Stand Alone Forms: General Discharge Information Follow-up/Referrals: Dwight Richards MD [Physician] - 3 Weeks Discharge Medications: New hydrocodone-acetaminophen 5-325 mg Tablet 1 tablet PO Q6H Qty: 20 RF: 0 ibuprofen 600 mg Tablet 600 mg PO Q6H PRN (Reason: Cramping) Qty: 30 RF: 0 Continued PNV cmb#95-ferrous fumarate-FA [] 28 mg iron- 800 mcg Tablet 1 tablet PO DAILY RF: 0 Discontinued metformin 500 mg Tablet Extended Release 24 Hr 500 mg PO DAILY RF: 0 Date of admission: 04/30/21 05:13 Primary Care Provider: PHYSICIAN,GRE TUTOR Admitting Provider: Dwight Richards Attending physician on admission: Dwight Richards Condition: Stable
[2021-05-05 07:52] VITALS: BP 124/83; PULSE 80; RESP 20; TEMP 37; O2SAT 100
== END 2021-05-03 12:16 | disposition home or self-care (01) | DRG 788 ==
LOC: ANHLDR 05:22 → ANHOBPP 10:18 → ANHOB2 14:36
PROVIDERS: Admitting Provider Obstetrics & Gynecology; Visit Provider Obstetrics & Gynecology
PROC: 10D00Z1 Extraction of Products of Conception, Low, Open Approach (ICD-10-PCS; CPT 59514; principal; 2021-04-30 07:30)
DX: O34.211 Maternal care for low transverse scar from previous cesarean delivery (principal); O24.420 Gestational diabetes mellitus in childbirth, diet controlled; O69.81X0 Labor and delivery complicated by cord around neck, without compression, not applicable or unspecified; Z3A.39 39 weeks gestation of pregnancy; Z37.0 Single live birth; Z87.891 Personal history of nicotine dependence
CPT/HCPCS: 36415; 59025; 82948; 85025; 85027; 86592; 86850; 86900; 86901; A9270; J0131; J0690; J1885; J2274; J2370; J2405; J2590; J7120